=== PATIENT | female | born 2000 | race Caucasian/White ===

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

== ENCOUNTER 2022-12-27 10:13 | Inpatient (IN) ==
[2022-12-27] MEDS ORDERED: LIDOCAINE 1% LOCAL 20 ML VIAL INFIL PRN (11:59)
[2022-12-27] MEDS ORDERED: OXYTOCIN 30 UNITS/500 ML BAG IV PRN (11:59)
--- NOTE | 2022-12-27 12:06 | History & Physical Report ---
Date of Service December 27, 2022 Assessment & Plan (1) 41 weeks gestation of : Plan: Admit, routine labs, sublingual Cytotec 25 mcg every 4 hours Plan for artificial rupture of membranes and oxytocin for further augmentation when appropriate Epidural if patient request Anticipate spontaneous vaginal delivery (2) Antepartum anemia complicating in third trimester: Plan: Patient has reviewed received IV iron this , admission H&H pending (3) Hx of resection of large bowel: Plan: from OB standpoint should be reserved for routineOB indications and favorable outcomes have been reported in patients with Hx colectomy that pursued vaginal delivery. -Avoid episiotomy when able. -Increase hydration to 2-3 liters of water daily, spread over the course of the day. (4) Rh negative status during in third trimester: Plan: We will give RhoGAM if indicated (5) Prothrombin gene mutation: Plan: Plan for prophylactic Lovenox 6 to 8 weeks (6) Aortic regurgitation: Plan: Last echo ejection fraction normal, will make sure anesthesia is aware Admission and Anticipated Discharge Date Admission Date: December 27, 2022 History of Present Illness Chief Complaint: Post dates IOL Primary Care Provider: NO PCP Patient is a pleasant 22-year-old -0-1-0 at 41 and 0 days dated by 9-week ultrasound who presents to labor and delivery for induction of labor for postterm gestation. She denies contractions, leaking of fluid or vaginal bleeding. Notes good movement. Denies headache, blurry vision, right upper quadrant epigastric pain. Otherwise feeling well has been complicated by history of liver infarct, as a result of Int ra-Op complication. She was also found to be heterogeneous for prothrombin gene mutation with no history of VTE. Prophylactic dose of anticoagulation therapy recommended for 6 to 8 weeks . She also has a history of maternal aortic regurgitation, diagnosed in 2014, last echo 10/08/2022, ejection fraction 60 to 64%, and per [facility] okay to proceed with vaginal delivery no contraindication to Valsalva. She has a history of abdominal surgery due to history of microcolon and total colectomy, -"Laparoscopic diverting loop ileostomy done in October 2020 for her severe constipation, and on 09 Nov 2020, the loop ileostomy was taken down, and laparoscopic total abdominal colectomy with ileorectal anastomosis was done by Dr. Koenig at [facility]. The patient was then admitted to [facility] on 01/16/2021 with abdominal pain and was found to have some bowel obstruction at the anastomotic site. She was taken to the operating room for flexible sigmoidoscopy and dilatation of the ileorectal anastomosis. She was discharged on 01/18/2021. The patient had another flexible sigmoidoscopy done on 01/26/2021, and the ileorectal anastomosis was dilated again, and she was discharged on MiraLAX" from OB standpoint should be reserved for routineOB indications and favorable outcomes have bene reported in patients with Hx colectomy that pursued vaginal delivery. -Avoid episiotomy when able. -Increase hydration to 2-3 liters of water daily, spread over the course of the day. also complicated by antepartum anemia which she received iron t ransfusion. Rh- in which she received RhoGAM earlier this Allergies Allergy/AdvReac Type Severity Reaction Status Date / Time Sulfa (Sulfonamide AdvReac Intermediate JOINT PAIN Verified 12/27/22 10:51 Antibiotics) Home Medications Medication Instructions Recorded Confirmed Type pantoprazole 20 mg tablet,delayed 20 mg PO BID 04/20/18 12/27/22 History release tramadol 50 mg tablet 50 mg PO Q6 PRN Pain 10/08/20 12/27/22 History 1 tab PO DAILY 12/27/22 12/27/22 History Tums 1 tab PO DAILY PRN Heartburn 12/27/22 12/27/22 History Patient History Medical History Eosinophilic esophagitis GERD (gastroesophageal reflux disease) H/O constipation Ovarian cyst Prothrombin gene mutation Heparin while in the hospital with back pain in 2020. Surgical History H/O ileostomy Family History Sister Factor VII deficiency Grandmother (Paternal) Hypertension Diabetes Grandmother (Paternal) Hypertension Grandfather (Maternal) Hypertension Grandfather (Paternal) Hypertension Grandmother (Maternal) Stroke Grandfather (Maternal) No problems noted. Grandfather (Paternal) Diabetes Social History Smoking Status: Never smoker Second Hand Exposure: No; Do You Dip or Chew Tobacco: No; Hx Alcohol Use: No Hx Substance Use: No Preferred Language: Kinyarwanda Foil Wrapper Required: No Beliefs That Will Affect Care: None marital status: Single Current Living Situation Comment: Lives with Father of the baby. 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 record Review of Systems All systems reviewed & are unremarkable except as noted in HPI & below Physical Exam Constitutional: WD/WN, vitals as above Respiratory: normal respiratory effort, lungs clear to auscultation Cardiovascular: RRR, no murmur, no edema Gastrointestinal (Abdomen): normal bowel sounds, soft, nontender, no he patosplenomegaly Gravid uterus, cephalic by Aidan's, estimated weight 3500 Genitourinary: Cervical exam: 0/0/-3 Results & Data Vital Signs (Past 12 Hours) Vital Signs Temp Pulse Resp BP 12/27/22 11:06 36.8 C 76 16 117/63 Monitoring External Monitor heart tracing: Baseline 135, moderate variability, positive accelerations no decelerations Tocodynamometer Irritable
[2022-12-27 12:39] LABS: Hemoglobin 10.6 g/dl (12.0-16.0); Mean Corpuscular Hemoglobin 29.8 pg (25.0-34.0); Mean Corpuscular Hgb Conc 34.2 g/dL (32.0-36.0); Mean Corpuscular Volume 87.1 fL (80.0-100.0); Mean Platelet Volume 10.6 fL (9.4-12.4); Platelet Count 232 K/uL (130-400); RDW Coefficient of Variation 16.2 % (11.5-14.5); RDW Standard Deviation 51.8 fL (36.4-46.3); Red Blood Count 3.56 M/uL (4.20-5.40); White Blood Count 12.58 K/ul (4.8-10.8)
[2022-12-27] MEDS: LACTATED RINGER'S 1,000 ML IV PRN ×2 (12:50→13:52)
[2022-12-27] MEDS: miSOPROStoL 25 MCG TAB SL SCH ×2 (14:00→23:33)
--- NOTE | 2022-12-27 20:10 | Obstetrical Progress Note ---
Date of Service December 27, 2022 Assessment & Plan (1) 41 weeks gestation of : Plan: s/p one dose Cytotec 25 mcg, but has been tk too regularly to give a second dose at this time. When contractions spaced out we will plan to give a second dose of Cytotec 25 mcg sublingually Plan for artificial rupture of membranes and oxytocin for further augmentation when appropriate Epidural if patient request Anticipate spontaneous vaginal delivery (2) Antepartum anemia complicating in third trimester: Plan: Patient has reviewed received IV iron this , admission H&H 10.6/31% (3) Hx of resection of large bowel: Plan: from OB standpoint should be reserved for routineOB indications and favorable outcomes have been reported in patients with Hx colectomy that pursued vaginal delivery. -Avoid episiotomy when able. -Increase hydration to 2-3 liters of water daily, spread over the course of the day. (4) Rh negative status during in third trimester: Plan: We will give RhoGAM if indicated (5) Prothrombin gene mutation: Plan: Plan for prophylactic Lovenox 6 to 8 weeks Continue SCDs while in bed (6) Aortic regurgitation: Plan: Last echo ejection fraction normal, will make sure anesthesia is aware Admission and Anticipated Discharge Date Admission Date: December 27, 2022 Subjective Patient lying comfortably in bed at this time, SCDs in place Did have some mild cramping earlier, denies any pressure or pain Physical Exam Constitutional: WD/WN, vitals as above Respiratory: normal respiratory effort, lungs clear to auscultation Cardiovascular: RRR, no murmur, no edema Gastrointestinal (Abdomen): normal bowel sounds, soft, nontender, no hepatosplenomegaly Genitourinary: heart tracing: Baseline 140, minimal to moderate variability, no positive accelerations since being placed onto the monitor, no decelerations Tocometer: Contractions every 2 to 4 minutes Cervix: Fingertip/50/-3, anterior soft Results & Data Vital Signs (Past 12 Hours) Vital Signs Temp Pulse Resp BP 12/27/22 19:58 72 114/59 L 12/27/22 14:06 16 12/27/22 14:06 36.5 C 16 12/27/22 14:07 80 106/58 L 12/27/22 11:06 36.8 C 76 16 117/63
[2022-12-28] MEDS: miSOPROStoL 25 MCG TAB SL SCH (03:35)
--- NOTE | 2022-12-28 06:36 | Obstetrical Progress Note ---
Date of Service December 28, 2022 Assessment & Plan (1) 41 weeks gestation of : Plan: s/p 3 doses Cytotec 25 mcg Patient to shower, eat breakfast this morning Plan for artificial rupture of membranes and oxytocin for further augmentation when appropriate Epidural if patient request Anticipate spontaneous vaginal delivery (2) Antepartum anemia complicating in third trimester: Plan: Patient has reviewed received IV iron this , admission H&H 10.6/31% (3) Hx of resection of large bowel: Plan: from OB standpoint should be reserved for routineOB indications and favorable outcomes have been reported in patients with Hx colectomy that pursued vaginal delivery. -Avoid episiotomy when able. -Increase hydration to 2-3 liters of water daily, spread over the course of the day. (4) Rh negative status during in third trimester: Plan: We will give RhoGAM if indicated (5) Prothrombin gene mutation: Plan: Plan for prophylactic Lovenox 6 to 8 weeks Continue SCDs while in bed (6) Aortic regurgitation: Plan: Last echo ejection fraction normal, will make sure anesthesia is aware Admission and Anticipated Discharge Date Admission Date: December 27, 2022 Subjective Patient has been able to sleep overnight, no complaints. SCDs in place Physical Exam Genitourinary: Tracing: Baseline 1 45-1 50, moderate variability, positive accelerations, no decelerations, category 1 tracing Tocometer: Contractions every 2 to 6 minutes Cervix: Fingertip/50/-3 Results & Data Vital Signs (Past 12 Hours) Vital Signs Temp Pulse Resp BP O2 Del Method 12/27/22 19:50 Room Air 12/28/22 03:02 16 12/28/22 03:02 36.7 C 16 12/28/22 03:01 74 96/53 L 12/27/22 23:15 36.9 C 96 H 16 106/52 L 12/27/22 19:58 36.8 C 72 20 114/59 L
[2022-12-28] MEDS ORDERED: OXYTOCIN 30 UNITS/500 ML BAG IV PRN ×2 (10:28→16:38)
--- NOTE | 2022-12-28 10:28 | Obstetrical Progress Note ---
Date of Service December 28, 2022 Assessment & Plan (1) 41 weeks gestation of : Plan: Labor Induction Day #2 Pt received 3 doses Cytotec on day #1 VE; Ft/post FHR CAT1 Zavala bulb placed w/o difficulty 40cc saline in zavala starting low dose pit Admission and Anticipated Discharge Date Admission Date: December 27, 2022 Results & Data Vital Signs (Past 12 Hours) Vital Signs Temp Pulse Resp BP 12/28/22 09:49 36.4 C L 20 12/28/22 07:05 36.6 C 18 12/28/22 09:39 66 102/56 L 12/28/22 07:11 72 115/54 L 12/28/22 03:02 16 12/28/22 03:02 36.7 C 16 12/28/22 03:01 74 96/53 L 12/27/22 23:15 36.9 C 96 H 16 106/52 L
[2022-12-28] MEDS: LACTATED RINGER'S 1,000 ML IV PRN ×3 (11:18→20:01)
[2022-12-28] MEDS ORDERED: BUTORPHANOL TARTRATE 1 MG/ML VIAL IV PRN (13:37)
[2022-12-28] MEDS ORDERED: SODIUM CHLORIDE 0.9% PF INJ 10 ML VIAL ONE (19:27)
[2022-12-28] MEDS ORDERED: BUPIVACAINE 0.25% PF 30 ML VIAL ONE (19:27)
[2022-12-28] MEDS ORDERED: fentaNYL citrate PF 100 MCG/2 ML VIAL ONE (19:27)
[2022-12-28] MEDS ORDERED: LIDOCAINE 2%/EPINEPHRINE 1:200,000 20 ML PF ONE ×2 (19:27→21:49)
[2022-12-28] MEDS ORDERED: ePHEDrine sulfate 50 MG/ML AMP ONE (19:27)
[2022-12-28] MEDS ORDERED: fentaNYL 2MCG/ML ROPIVACAINE 1.25MG/ML 100 ML BAG EPI ONE (19:28)
--- NOTE | 2022-12-28 19:38 | Obstetrical Progress Note ---
Date of Service December 28, 2022 Assessment & Plan Admission and Anticipated Discharge Date Admission Date: December 27, 2022 Subjective Pt doing well Walsh out FHR CAT1 Ctx . mild and irregular Pit; 10MU VE ; pt tolerated exam poorly Earlier exam by nurse was4cm Plan: Epidural analgesia and consider AROM Results & Data Vital Signs (Past 12 Hours) Vital Signs Temp Pulse Resp BP Pulse Ox 12/28/22 09:49 36.4 C L 20 12/28/22 19:01 20 12/28/22 19:01 37.0 C 20 12/28/22 18:48 69 94/53 L 12/28/22 18:19 73 101/53 L 12/28/22 17:53 66 103/60 12/28/22 17:18 71 109/58 L 12/28/22 16:34 78 110/58 L 12/28/22 16:19 18 12/28/22 16:19 36.5 C 18 12/28/22 16:00 79 20 99 12/28/22 15:55 74 99 12/28/22 15:50 80 99 12/28/22 15:45 82 99 12/28/22 15:40 74 98 12/28/22 15:35 77 99 12/28/22 15:30 84 99 12/28/22 15:25 80 100 12/28/22 15:20 71 100 12/28/22 15:17 65 98/56 L 12/28/22 15:15 74 99 12/28/22 15:10 71 100 12/28/22 15:05 69 100 12/28/22 15:00 73 100 12/28/22 14:55 66 99 12/28/22 14:50 73 97 12/28/22 14:45 64 97 12/28/22 14:40 66 97 12/28/22 14:35 62 96 12/28/22 14:28 20 12/28/22 14:28 36.5 C 20 12/28/22 14:30 74 97 12/28/22 14:25 60 96 12/28/22 14:20 59 L 96 12/28/22 14:17 63 93/52 L 12/28/22 14:15 61 96 12/28/22 14:10 59 L 96 12/28/22 14:05 66 95 06/24/23 14:00 71 20 100 12/28/22 13:55 62 100 12/28/22 13:18 68 111/66 12/28/22 12:16 91 H 18 118/65 12/28/22 11:19 18 12/28/22 11:19 36.5 C 72 18 115/58 L 12/28/22 09:39 66 102/56 L
[2022-12-28] MEDS ORDERED: fentaNYL 2MCG/ML ROPIVACAINE 1.25MG/ML 100 ML BAG EPI PRN (19:58)
[2022-12-28] MEDS ORDERED: ONDANSETRON INJ 2 MG/ML 2 ML VIAL IV PRN ×2 (19:58→22:11)
[2022-12-28] MEDS ORDERED: BUPIVACAINE 0.25% PF 30 ML VIAL EPI STA (19:58)
[2022-12-28] MEDS ORDERED: LIDOCAINE 2%/EPINEPHRINE 1:200,000 20 ML PF EPI STA (19:58)
[2022-12-28] MEDS ORDERED: NALOXONE HCL 0.4 MG/1 ML VIAL/CARP IV PRN ×2 (19:58→22:11)
[2022-12-28] MEDS ORDERED: NALOXONE HCL 1 MG in SODIUM CHLORIDE 0.9% 1000ML 1,000 ML IV PRN ×2 (19:58→22:11)
[2022-12-28] MEDS ORDERED: diphenhydrAMINE 50 MG/ML VIAL IV PRN ×2 (19:58→22:11)
[2022-12-28] MEDS ORDERED: ePHEDrine sulfate 50 MG/ML AMP IV PRN ×2 (19:58→22:11)
[2022-12-28] MEDS ORDERED: SODIUM CHLORIDE 0.9% PF INJ 10 ML VIAL EPI STA (19:58)
[2022-12-28] MEDS ORDERED: ROPIVACAINE 0.5% PF 5 MG/ML 20 ML VIAL EPI PRN (19:58)
[2022-12-28] MEDS ORDERED: BUPIVACAINE 0.25% PF 30 ML VIAL EPI PRN (19:58)
[2022-12-28] MEDS ORDERED: fentaNYL citrate PF 100 MCG/2 ML VIAL EPI STA (19:58)
[2022-12-28] MEDS ORDERED: NALBUPHINE HCL INJ 10 MG/ML AMP IV PRN ×2 (19:58→22:11)
[2022-12-28] MEDS ORDERED: fentaNYL citrate PF 100 MCG/2 ML VIAL EPI PRN (19:58)
[2022-12-28] MEDS ORDERED: SODIUM CHLORIDE 0.9% PF INJ 10 ML VIAL EPI PRN (19:58)
[2022-12-28] MEDS ORDERED: LIDOCAINE 2% MPF LOCAL 5 ML VIAL EPI PRN (19:58)
--- NOTE | 2022-12-28 19:58 | Anesthesiology Consultation ---
Date of Service December 28, 2022 Assessment & Plan ASA ASA2 Proposed Anesthesia Anesthesia Type: Labor Epidural Risk / Benefits Reviewed With: PT / POA / Parent / Guardian, Accepts Plan and Informed Consent Obtained History Height/Weight Height: 5 ft 2 in Weight: 76.657 kg Allergies Allergy/AdvReac Type Severity Reaction Status Date / Time Sulfa (Sulfonamide AdvReac Intermediate JOINT PAIN Verified 12/27/22 10:51 Antibiotics) Medications Home Medications Medication Instructions Recorded Confirmed Last Taken pantoprazole 20 mg tablet,delayed 20 mg PO BID 04/20/18 12/27/22 Unknown release tramadol 50 mg tablet 50 mg PO Q6 PRN Pain 10/08/20 12/27/22 Unknown 1 tab PO DAILY 12/27/22 12/27/22 12/27/22 08:00 Tums 1 tab PO DAILY PRN Heartburn 12/27/22 12/27/22 12/27/22 09:00 Active Medications Generic Name Dose Route Start Last Admin Trade Name Freq PRN Reason Stop Dose Admin Butorphanol Tartrate 1 mg 12/28/22 13:37 12/28/22 13:56 Butorphanol Tartrate 1 Mg/Ml Vial IV 01/27/23 13:36 1 mg Q4 PRN Administration Pain Lactated Ringer's 1,000 mls @ 125 mls/hr 12/27/22 11:59 12/28/22 20:01 Lr IV 12/29/22 11:58 125 mls/hr .Q8H PRN Administration L&D Protocol Protocol Oxytocin 30 units in 500 mls @ 0 mls/hr 12/28/22 10:28 12/28/22 14:56 Pitocin IV 12/30/22 10:27 0 units/hr .Q0M PRN 0 mls/hr Labor Induction/Augmentation Titration Protocol 0 UNITS/HR Oxytocin 30 units in 500 mls @ 10 mls/hr 12/28/22 16:38 12/28/22 19:01 Pitocin IV 12/30/22 16:37 0.6 units/hr .Q24H PRN 10 mls/hr Labor Induction/Augmentation Titration Protocol 0.6 UNITS/HR Misoprostol 25 mcg 12/27/22 12:00 12/28/22 03:35 Misoprostol 25 Mcg Tab SL 01/26/23 11:59 25 mcg Q4H RAFY Administration Past Medical History Medical History Eosinophilic esophagitis GERD (gastroesophageal reflux disease) H/O constipation Ovarian cyst Prothrombin gene mutation Heparin while in the hospital with back pain in 2020. Exercise / Class Metabolic Activity II 4-5 Yardwork/Stairs/Walk up hill Past Family History Family History Sister Factor VII deficiency Grandmother (Paternal) Hypertension Diabetes Grandmother (Paternal) Hypertension Grandfather (Maternal) Hypertension Grandfather (Paternal) Hypertension Grandmother (Maternal) Stroke Grandfather (Maternal) No problems noted. Grandfather (Paternal) Diabetes Past Surgical History Surgical History H/O ileostomy Past Anesthesia History No Hx of Anesthesia Complications and No Family Hx of Anesthesia Complications History of PONV No Hx of PONV and No Hx of Motion Sickness Social History Smoking Status: Never smoker Do You Dip or Chew Tobacco: No Hx Alcohol Use: No Hx Substance Use: No substance use type: does not use Review of Systems denies fever/cough/ colds/ chest pain/ SOB/ LASHA denies LASHA Physical Exam Vital Signs Last Vital Signs Temp 37.0 C 12/28/22 19:01 Pulse 98 H 12/28/22 20:23 Resp 20 12/28/22 19:01 BP 112/62 12/28/22 20:23 Pulse Ox 100 12/28/22 20:20 O2 Del Method Room Air 12/28/22 19:15 ENMT Mouth: no TMJ abnormality and no dentition abnormality Thyromental Distance: > or= 3.5 Finger Breadths Mallampati Class: II Neck neck extension not limited Respiratory normal respiratory effort; no respiratory distress Auscultation: lungs clear to auscultation bilaterally Cardiovascular Rate/Rhythm: regular rate and regular rhythm Neurologic moves all extremities Psychiatric Orientation: alert and oriented x 3 Testing Laboratory Results 12/27/22 12:10 Blood Type O Negative 12/27/22 12:10 Antibody Screen Cancelled 12/27/22 12:10 Antibody Screen NEGATIVE 12/27/22 12:10
[2022-12-28] MEDS ORDERED: CITRIC ACID/SODIUM CITRATE 15 ML UDC ONE (21:12)
--- NOTE | 2022-12-28 21:20 | Obstetrical Progress Note ---
Date of Service December 28, 2022 Assessment & Plan (1) 41 weeks gestation of : Plan FHR CAT1 Pit; 10mu VE; 4/100/-1 Attempted to AROM with amnio hook FHR dropped to 60;s scalp was performed Pit turned off Oxygen Pt on left side and Turb SQ given FH returned to base line will proceed to OR for STAT c/sec Admission and Anticipated Discharge Date Admission Date: December 27, 2022 Results & Data Vital Signs (Past 12 Hours) Vital Signs Temp Pulse Resp BP Pulse Ox O2 Del Method 12/28/22 19:15 Room Air 12/28/22 09:49 36.4 C L 20 12/28/22 21:16 114/53 L 12/28/22 21:10 125 H 99 12/28/22 21:05 139 H 99 12/28/22 21:06 134 H 117/60 12/28/22 21:00 87 98 12/28/22 20:55 90 103/58 L 97 12/28/22 20:52 86 107/63 12/28/22 20:50 89 97 12/28/22 20:46 84 110/58 L 12/28/22 20:45 88 98 12/28/22 20:40 91 H 107/55 L 97 12/28/22 20:35 96 H 111/56 L 97 12/28/22 20:30 90 97 12/28/22 20:31 111 H 112/55 L 12/28/22 20:25 94 H 110/56 L 99 12/28/22 20:23 98 H 112/62 12/28/22 20:21 100 H 109/62 12/28/22 20:20 94 H 100 12/28/22 20:19 90 106/61 12/28/22 20:15 89 98 12/28/22 20:10 105 H 100 12/28/22 20:08 96 H 126/65 12/28/22 20:05 115 H 99 12/28/22 19:01 20 12/28/22 19:01 37.0 C 20 12/28/22 18:48 69 94/53 L 12/28/22 18:19 73 101/53 L 12/28/22 17:53 66 103/60 12/28/22 17:18 71 109/58 L 12/28/22 16:34 78 110/58 L 12/28/22 16:19 18 12/28/22 16:19 36.5 C 18 12/28/22 16:00 79 20 99 12/28/22 15:55 74 99 12/28/22 15:50 80 99 12/28/22 15:45 82 99 12/28/22 15:40 74 98 12/28/22 15:35 77 99 12/28/22 15:30 84 99 12/28/22 15:25 80 100 12/28/22 15:20 71 100 12/28/22 15:17 65 98/56 L 12/28/22 15:15 74 99 12/28/22 15:10 71 100 12/28/22 15:05 69 100 12/28/22 15:00 73 100 12/28/22 14:55 66 99 12/28/22 14:50 73 97 12/28/22 14:45 64 97 12/28/22 14:40 66 97 12/28/22 14:35 62 96 12/28/22 14:28 20 12/28/22 14:28 36.5 C 20 12/28/22 14:30 74 97 12/28/22 14:25 60 96 12/28/22 14:20 59 L 96 12/28/22 14:17 63 93/52 L 12/28/22 14:15 61 96 12/28/22 14:10 59 L 96 12/28/22 14:05 66 95 12/28/22 14:00 71 20 100 12/28/22 13:55 62 100 12/28/22 13:18 68 111/66 12/28/22 12:16 91 H 18 118/65 12/28/22 11:19 18 12/28/22 11:19 36.5 C 72 18 115/58 L 12/28/22 09:39 66 102/56 L
[2022-12-28] MEDS ORDERED: ceFAZolin 2000MG 2,000 MG/15 ML SYR IV SCH (21:30)
[2022-12-28] MEDS ORDERED: ePHEDrine sulfate 50 MG/ML SYR ONE (21:50)
[2022-12-28] MEDS ORDERED: OXYTOCIN 10 UNITS/ML VIAL ONE ×2 (21:50→22:02)
[2022-12-28] MEDS ORDERED: ONDANSETRON INJ 2 MG/ML 2 ML VIAL ONE (21:56)
[2022-12-28] MEDS ORDERED: METHYLERGONOVINE MALEATE 0.2 MG/ML AMP ONE (22:02)
[2022-12-28] MEDS ORDERED: miSOPROStoL 200 MCG TAB ONE (22:03)
[2022-12-28] MEDS ORDERED: MoRPHine SULFATE PF 1 MG/ML 10 ML AMP/VIAL ONE (22:05)
[2022-12-28] MEDS ORDERED: MoRPHine SULFATE PF 1 MG/ML 10 ML AMP/VIAL EPI ONE (22:11)
[2022-12-28] MEDS ORDERED: NALOXONE HCL 0.08 MG in SYRINGE 1.8 ML IV PRN (22:11)
[2022-12-28] MEDS ORDERED: LACTATED RINGER'S 500 ML IV PRN (22:11)
[2022-12-28] MEDS ORDERED: MoRPHine SULFATE 2 MG/ML CARP IV PRN (22:11)
[2022-12-28] MEDS ORDERED: KETOROLAC 30 MG/ML VIAL IV PRN (22:11)
[2022-12-28] MEDS ORDERED: DC INTRASPINAL MORPHINE SCH (22:15)
[2022-12-28] MEDS ORDERED: NO NARCOTICS OR SEDATIVES SCH (22:15)
[2022-12-28] MEDS ORDERED: SODIUM CHLORIDE 0.9% 1000ML 1,000 ML IV SCH (22:15)
[2022-12-28 22:21] LABS: Base Excess Cord Arterial Bld -1.4 mEq/L (-9-1.8); CO2 Cord Arterial Blood 56 mmHg (39.1-73.5); HCO3 Cord Arterial Blood 26 mmol/L (19.7-28.5); Oxygen Sat Cord Arterial Blood < 60.0 % (<60); PO2 Cord Arterial Blood 21 mmHg (4.1-31.7); pH Cord Arterial Blood 7.28 (7.1-7.38)
[2022-12-28 22:22] LABS: Cord Venous Blood HCO3 23 mmol/L (18.4-26.8); Cord Venous Blood PCO2 40 mmHg (30.4-57.2); Cord Venous Blood PO2 32 mmHg (14.1-43.3); Cord Venous Blood pH 7.37 (7.20-7.44); O2 Saturation Cord Venous Bld 68.3 % (<68)
[2022-12-28] MEDS ORDERED: OXYTOCIN 10 UNITS/ML 10ML VIAL IM ONE (22:29)
[2022-12-28] MEDS ORDERED: miSOPROStoL 200 MCG TAB PR ONE (22:29)
[2022-12-28] MEDS ORDERED: SENNA 8.6 MG TAB PO PRN (22:44)
[2022-12-28] MEDS ORDERED: DIPHTHERIA/TETANUS/PERTUSSIS Vaccine (Tdap, Age 7+yrs) 0.5mL SYR/VL IM ONE (22:44)
[2022-12-28] MEDS ORDERED: MAGNESIUM HYDROXIDE SUSP 30 ML UDC PO PRN (22:44)
[2022-12-28] MEDS ORDERED: BENZOCAINE 20% AER SPR 82.5 GM CAN EXT PRN (22:44)
[2022-12-28] MEDS ORDERED: HYDROCORTISONE ACETATE 25 MG SUPP PR PRN (22:44)
[2022-12-28] MEDS ORDERED: LACTATED RINGER'S 1,000 ML IV SCH (22:45)
--- NOTE | 2022-12-28 22:51 | Anesthesia Procedure Note ---
Date of Service December 28, 2022 Anesthesia Post Epidural Note Vital Signs Vital Signs: Temp Pulse Resp BP Pulse Ox O2 Del Method 37.0 C 84 20 103/55 L 100 Room Air 12/28/22 19:01 12/28/22 22:48 12/28/22 19:01 12/28/22 22:47 12/28/22 22:48 12/28/22 19:15 Notes Mental Status: alert / awake / arousable and participated in evaluation Nausea / Vomiting: adequately controlled Pain: adequately controlled Airway Patency, RR, SpO2: stable & adequate BP & HR: stable & adequate Hydration State: stable & adequate Neuraxial Anesthesia: was administered and sensory block is resolving Anesthetic Complications: no major complications apparent and Pt Satisfied with anesthetic care Epidural: Removed without complications and With tip intact
--- NOTE | 2022-12-28 23:05 | Anesthesiology Progress Note ---
Date of Service December 28, 2022 Anesthesia Post Procedure Vital Signs Vital Signs: Temp Pulse Resp BP Pulse Ox O2 Del Method 12/28/22 19:15 Room Air 12/28/22 09:49 36.4 C L 20 12/28/22 07:05 36.6 C 18 12/28/22 23:03 78 100 12/28/22 22:58 87 100 12/28/22 22:57 102 H 101/60 12/28/22 22:53 77 100 12/28/22 22:48 84 100 12/28/22 22:47 75 103/55 L 12/28/22 21:36 91 H 99 12/28/22 21:35 94 H 109/57 L 12/28/22 21:31 99 H 99 12/28/22 21:30 99 H 112/56 L 12/28/22 21:26 114 H 99 12/28/22 21:25 121 H 114/58 L 12/28/22 21:21 112 H 99 12/28/22 21:20 107 H 112/52 L 12/28/22 21:16 98 12/28/22 21:16 114 H 12/28/22 21:16 101 H 114/53 L 12/28/22 21:10 125 H 99 12/28/22 21:05 139 H 99 12/28/22 21:06 134 H 117/60 12/28/22 21:00 87 98 12/28/22 20:55 90 103/58 L 97 12/28/22 20:52 86 107/63 12/28/22 20:50 89 97 12/28/22 20:46 84 110/58 L 12/28/22 20:45 88 98 12/28/22 20:40 91 H 107/55 L 97 12/28/22 20:35 96 H 111/56 L 97 12/28/22 20:30 90 97 12/28/22 20:31 111 H 112/55 L 12/28/22 20:25 94 H 110/56 L 99 12/28/22 20:23 98 H 112/62 12/28/22 20:21 100 H 109/62 12/28/22 20:20 94 H 100 12/28/22 20:19 90 106/61 12/28/22 20:15 89 98 12/28/22 20:10 105 H 100 12/28/22 20:08 96 H 126/65 12/28/22 20:05 115 H 99 12/28/22 19:01 20 12/28/22 19:01 37.0 C 20 12/28/22 18:48 69 94/53 L 12/28/22 18:19 73 101/53 L 12/28/22 17:53 66 103/60 12/28/22 17:18 71 109/58 L 12/28/22 16:34 78 110/58 L 12/28/22 16:19 18 12/28/22 16:19 36.5 C 18 12/28/22 16:00 79 20 99 12/28/22 15:55 74 99 12/28/22 15:50 80 99 12/28/22 15:45 82 99 12/28/22 15:40 74 98 12/28/22 15:35 77 99 12/28/22 15:30 84 99 12/28/22 15:25 80 100 12/28/22 15:20 71 100 12/28/22 15:17 65 98/56 L 12/28/22 15:15 74 99 12/28/22 15:10 71 100 12/28/22 15:05 69 100 12/28/22 15:00 73 100 12/28/22 14:55 66 99 12/28/22 14:50 73 97 12/28/22 14:45 64 97 12/28/22 14:40 66 97 12/28/22 14:35 62 96 12/28/22 14:28 20 12/28/22 14:28 36.5 C 20 12/28/22 14:30 74 97 12/28/22 14:25 60 96 12/28/22 14:20 59 L 96 12/28/22 14:17 63 93/52 L 12/28/22 14:15 61 96 12/28/22 14:10 59 L 96 12/28/22 14:05 66 95 12/28/22 14:00 71 20 100 12/28/22 13:55 62 100 12/28/22 13:18 68 111/66 12/28/22 12:16 91 H 18 118/65 12/28/22 11:19 18 12/28/22 11:19 36.5 C 72 18 115/58 L 12/28/22 09:39 66 102/56 L 12/28/22 07:11 72 115/54 L 12/28/22 03:02 16 12/28/22 03:02 36.7 C 16 12/28/22 03:01 74 96/53 L 12/27/22 23:15 36.9 C 96 H 16 106/52 L Transfer of Care Handoff Completed per policy Notes Mental Status: alert / awake / arousable and participated in evaluation Patient Amnestic to Procedure: Yes Nausea / Vomiting: adequately controlled Pain: adequately controlled Airway Patency, RR, SpO2: stable & adequate BP & HR: stable & adequate Hydration State: stable & adequate Anesthetic Complications: no major complications apparent and Pt Satisfied with anesthetic care
[2022-12-28] MEDS: OXYTOCIN 20 UNITS in LACTATED RINGER'S 1,000 ML IV SCH (23:18)
--- NOTE | 2022-12-28 23:32 | Operative Report ---
PG Post Operative Report Pre & Post Diagnosis Operation Date: 12/28/22 21:15 <No data on this case meets the specified criteria> I identified the patient and participated in the time-out.: Yes Procedure Operation Date: 12/28/22 21:15 Actual Procedures p Primary section. Live male child at - Rashid Moise MD Surgeon Rashid Moise MD Erosion Control Coordinator Dr Salomon Estimated Blood Loss 500 Findings Consistent with Post-Op Diagnosis Meconium on AROM.Live male in cephalic presentation with nuchal cord as well as body uterus tubes and ovaries appear grossly normal rest of the abdominal pelvic exam was unremarkable Fluids 1000cc LR 50cc Clear urine at end of procedure Specimens cord gases and placenta Drains none Anesthesia Type Labor Epidural Complications none Indications featl bradycardia Non reassuring heat tracing Description of Procedure Patient brought to the operating room Prepped and draped in normal sterile fashion in dorsal supine position with a leftward tilt. Time out is performed. Patient is identified by name and date of . Allergy and antibiotics and reviewed and confirmed. Skin check is performed to see if anesthesia is adequate A Pfannenstiel incision is made and carried out to the fascia with a scalpel. Fascia is incised in the midline extended laterally on both sides with Underwood scissors. Ozzie's were used to grab the superior part of the fascial incision and the rectus abdominis muscle dissected with Underwood scissors.. Same procedure was performed on the lower section of the fascia. The rectus muscle is then in the midline and the peritoneum identified, tented up and entered sharply with the Metzenbaum scissors. The peritoneal incision was then extended superiorly and inferiorly with good visualization of the bladder. An Rj retractor was then inserted to provide better visualization and retraction. Vesicouterine peritoneum was identified, grasped with pickups and entered sharply with Metzenbaum scissors. The incision was then extended laterally and the bladder flap created with Metzenbaum scissors. The lower uterine segment incision was performed in a transverse fashion with a scalpel. Uterine incision was then extended laterally with the bandage scissors. Amniotomy is performed and meconium fluid id noted The 's head was delivered atraumatically. Nose and mouth suctioned with the bulb suction. Delayed cord clamping performed and cord is then clamped and cut and is handed over to the waiting pediatric team. Cord blood and gases obtained The placenta is then removed manually the uterus is exteriorized and cleared of all clots and debris. Uterine incision it repaired with 0-Vicryl in a locking fashion. A second layer of 0-Vicryl is used to obtain excellent hemostasis The bladder flap was repaired in a running fashion with plain suture. Copious amount of irrigation was used to irrigate the abdomen. Gutters were cleared of all clots and debris . Hemostasis was obtained. The Rj retractor is removed as well as sponges or instruments in the abdomen. The peritoneum was identified and closed in a running fashion using plain suture. The rectus abdominis muscle was examined to ensure there no bleeding. The rectus abdominis muscle was approximated loosely using plain suture in a [id number] manner. Once again hemostasis is confirmed. The fascia was grasped with [place]'s and closed in a running fashion. Both fascial layers are closed together using 0-Vicryl suture. Subcutaneous space is irrigated and hemostasis was confirmed. Subcutaneous space is approximated with plain suture. Skin is closed with pancho. The patient tolerated procedure well sponge just labs needle counts were correct x2 patient is sent to recovery in stable condition I attest to the content of the Intraoperative Record and any orders documented therein. Any exceptions are noted below.
[2022-12-29] MEDS ORDERED: TERBUTALINE SULFATE 1 MG/ML VIAL SQ ONE (01:24)
[2022-12-29] MEDS ORDERED: CITRIC ACID/SODIUM CITRATE 15 ML UDC PO SCH (06:00)
[2022-12-29 07:49] LABS: Hematocrit (blood only) 21.8 % (37.0-47.0); Hemoglobin 7.5 g/dl (12.0-16.0); Mean Corpuscular Hemoglobin 29.9 pg (25.0-34.0); Mean Corpuscular Hgb Conc 34.4 g/dL (32.0-36.0); Mean Corpuscular Volume 86.9 fL (80.0-100.0); Mean Platelet Volume 10.8 fL (9.4-12.4); Platelet Count 166 K/uL (130-400); RDW Standard Deviation 50.9 fL (36.4-46.3); Red Blood Count 2.51 M/uL (4.20-5.40); White Blood Count 19.78 K/ul (4.8-10.8)
[2022-12-29 07:52] LABS: Basophils # (auto) 0.05 K/uL (0-0.2); Basophils % (auto) 0.3 %; Eosinophils # (auto) 0.03 K/uL (0-0.50); Eosinophils % (auto) 0.2 %; Immature Granulocytes # (auto) 0.17 K/uL (0.01-0.20); Immature Granulocytes % (auto) 0.9 %; Lymphocytes # (auto) 2.54 K/uL (1.2-3.4); Lymphocytes % (auto) 12.8 %; Monocytes # (auto) 1.79 K/uL (0.11-0.59); Neutrophils % (auto) 76.8 %; RBC Morphology Unremarkable
[2022-12-29] MEDS: OXYTOCIN 20 UNITS in LACTATED RINGER'S 1,000 ML IV SCH (07:56)
--- NOTE | 2022-12-29 08:10 | Obstetrical Progress Note ---
Date of Service December 29, 2022 Assessment & Plan (1) delivery delivered: c/sec day#1 pt doing well No complaints continue day #1 care Results & Data Vital Signs (Past 12 Hours) Vital Signs Temp Pulse Pulse Resp BP BP Pulse Ox 12/29/22 06:00 18 97 12/29/22 05:00 16 97 12/29/22 03:00 18 98 12/29/22 02:00 16 98 12/29/22 03:40 37.1 C 79 16 97/59 L 97 12/29/22 01:00 14 100 12/29/22 01:00 37.1 C 85 14 104/67 100 12/29/22 00:45 36.8 C 18 12/29/22 00:15 16 12/28/22 23:45 16 12/28/22 23:45 18 12/28/22 23:25 16 12/28/22 23:05 18 12/28/22 23:35 16 12/28/22 23:15 18 12/28/22 22:55 18 12/28/22 22:45 36.5 C 16 12/29/22 00:52 76 111/60 12/29/22 00:48 99 H 100 12/29/22 00:43 72 100 12/29/22 00:38 87 100 12/29/22 00:33 86 100 12/29/22 00:28 86 100 12/29/22 00:26 80 112/63 12/29/22 00:23 82 100 12/29/22 00:18 100 12/29/22 00:18 101 H 12/29/22 00:18 87 80 L 12/29/22 00:13 80 100 12/29/22 00:08 86 100 12/29/22 00:03 92 H 98 12/28/22 23:58 88 100 12/28/22 23:55 92 H 102/61 12/28/22 23:53 86 100 12/28/22 23:48 90 100 12/28/22 23:47 83 84/51 L 12/28/22 23:45 83 91 12/28/22 23:43 82 100 12/28/22 23:38 73 100 12/28/22 23:37 69 101/57 L 12/28/22 23:33 66 100 12/28/22 23:28 88 100 12/28/22 23:27 103 H 100/57 L 12/28/22 23:23 86 100 12/28/22 23:18 101 H 100 12/28/22 23:17 93 H 102/59 L 91 12/28/22 23:13 110 H 100 12/28/22 23:08 86 100 12/28/22 23:07 86 97/52 L 91 12/28/22 23:03 78 100 12/28/22 22:58 87 100 12/28/22 22:57 102 H 101/60 12/28/22 22:53 77 100 12/28/22 22:48 84 100 12/28/22 22:47 75 103/55 L 12/28/22 21:36 91 H 99 12/28/22 21:35 94 H 109/57 L 12/28/22 21:31 99 H 99 12/28/22 21:30 99 H 112/56 L 12/28/22 21:26 114 H 99 12/28/22 21:25 121 H 114/58 L 12/28/22 21:21 112 H 99 12/28/22 21:20 107 H 112/52 L 12/28/22 21:16 98 12/28/22 21:16 114 H 12/28/22 21:16 101 H 114/53 L 12/28/22 21:10 125 H 99 12/28/22 21:05 139 H 99 12/28/22 21:06 134 H 117/60 12/28/22 21:00 87 98 12/28/22 20:55 90 103/58 L 97 12/28/22 20:52 86 107/63 12/28/22 20:50 89 97 12/28/22 20:46 84 110/58 L 12/28/22 20:45 88 98 12/28/22 20:40 91 H 107/55 L 97 12/28/22 20:35 96 H 111/56 L 97 12/28/22 20:30 90 97 12/28/22 20:31 111 H 112/55 L 12/28/22 20:25 94 H 110/56 L 99 12/28/22 20:23 98 H 112/62 12/28/22 20:21 100 H 109/62 12/28/22 20:20 94 H 100 12/28/22 20:19 90 106/61 12/28/22 20:15 89 98 12/28/22 20:10 105 H 100 12/28/22 20:08 96 H 126/65 12/28/22 20:05 115 H 99 O2 Del Method 12/29/22 06:00 12/29/22 05:00 12/29/22 03:00 12/29/22 02:00 12/29/22 03:40 Room Air 12/29/22 01:00 12/29/22 01:00 Room Air 12/29/22 00:45 12/29/22 00:15 12/28/22 23:45 12/28/22 23:45 12/28/22 23:25 12/28/22 23:05 12/28/22 23:35 12/28/22 23:15 12/28/22 22:55 12/28/22 22:45 12/29/22 00:52 12/29/22 00:48 12/29/22 00:43 12/29/22 00:38 12/29/22 00:33 12/29/22 00:28 12/29/22 00:26 12/29/22 00:23 12/29/22 00:18 12/29/22 00:18 12/29/22 00:18 12/29/22 00:13 12/29/22 00:08 12/29/22 00:03 12/28/22 23:58 12/28/22 23:55 12/28/22 23:53 12/28/22 23:48 12/28/22 23:47 12/28/22 23:45 12/28/22 23:43 12/28/22 23:38 12/28/22 23:37 12/28/22 23:33 12/28/22 23:28 12/28/22 23:27 12/28/22 23:23 12/28/22 23:18 12/28/22 23:17 12/28/22 23:13 12/28/22 23:08 12/28/22 23:07 12/28/22 23:03 12/28/22 22:58 12/28/22 22:57 12/28/22 22:53 12/28/22 22:48 12/28/22 22:47 12/28/22 21:36 12/28/22 21:35 12/28/22 21:31 12/28/22 21:30 12/28/22 21:26 12/28/22 21:25 12/28/22 21:21 12/28/22 21:20 12/28/22 21:16 12/28/22 21:16 12/28/22 21:16 12/28/22 21:10 12/28/22 21:05 12/28/22 21:06 12/28/22 21:00 12/28/22 20:55 12/28/22 20:52 12/28/22 20:50 12/28/22 20:46 12/28/22 20:45 12/28/22 20:40 12/28/22 20:35 12/28/22 20:30 12/28/22 20:31 12/28/22 20:25 12/28/22 20:23 12/28/22 20:21 12/28/22 20:20 12/28/22 20:19 12/28/22 20:15 12/28/22 20:10 12/28/22 20:08 12/28/22 20:05
[2022-12-29] MEDS: DOCUSATE SODIUM 100 MG CAP PO SCH ×2 (09:13→21:46)
[2022-12-29] MEDS: SIMETHICONE 80 MG CHEW PO SCH ×4 (09:13→21:46)
[2022-12-29] MEDS: PRENATAL VITAMIN 1 TAB PO SCH (09:13)
[2022-12-29] MEDS: FERROUS SULFATE 325 MG TAB PO SCH (09:13)
[2022-12-29] MEDS: ENOXAPARIN INJ 40 MG/0.4 ML SYR SQ SCH (09:19)
[2022-12-29] MEDS ORDERED: diphenhydrAMINE 50 MG/ML VIAL IV PRN (16:12)
[2022-12-29] MEDS ORDERED: diphenhydrAMINE Capsule 25 MG CAP PO PRN (16:12)
[2022-12-29] MEDS ORDERED: ONDANSETRON INJ 2 MG/ML 2 ML VIAL IV PRN (16:12)
[2022-12-29] MEDS ORDERED: PROMETHAZINE HCL 25 MG in SODIUM CHLORIDE 0.9% 50 ML IV PRN (16:12)
[2022-12-29] MEDS: IBUPROFEN 600 MG TAB PO PRN (17:27)
[2022-12-29] MEDS: oxyCODONE/ACETAMINOPHEN 5mg/325mg TAB PO PRN (17:27)
[2022-12-29] MEDS ORDERED: bisacodyL 5 MG TABEC PO SCH (20:00)
[2022-12-29] MEDS ORDERED: NALOXONE HCL 1 MG in SODIUM CHLORIDE 0.9% 1000ML 1,000 ML IV PRN (22:04)
[2022-12-30] MEDS: oxyCODONE/ACETAMINOPHEN 5mg/325mg TAB PO PRN ×3 (02:35→23:14)
[2022-12-30] MEDS: IBUPROFEN 600 MG TAB PO PRN (02:35)
[2022-12-30 07:17] LABS: Hematocrit (blood only) 21.4 % (37.0-47.0); Hemoglobin 7.3 g/dl (12.0-16.0)
[2022-12-30] MEDS: PRENATAL VITAMIN 1 TAB PO SCH (08:12)
[2022-12-30] MEDS: FERROUS SULFATE 325 MG TAB PO SCH (08:12)
[2022-12-30] MEDS: SIMETHICONE 80 MG CHEW PO SCH ×4 (08:12→21:38)
[2022-12-30] MEDS: ENOXAPARIN INJ 40 MG/0.4 ML SYR SQ SCH (08:12)
[2022-12-30] MEDS: DOCUSATE SODIUM 100 MG CAP PO SCH ×2 (08:12→21:38)
--- NOTE | 2022-12-30 09:54 | Obstetrical Progress Note ---
Date of Service December 30, 2022 Subjective Ambulation: ambulating normally Voiding: no voiding problems Passing Gas:: Yes Diet Tolerance:: regular diet Lochia:: Small Feeding Type:: breast feeding Current Pain Level(1-10): 0 doing well denies SOB or dizziness Physical Exam Constitutional WD/WN, vitals as above Musculoskeletal Extremities: extremities normal to inspection Skin no rashes, warm and dry Neurologic patellar DTR's 2+ bilat, sensation intact Psychiatric A+Ox3, euthymic affect Results & Data Vital Signs (Past 12 Hours) Vital Signs Temp Pulse Pulse Resp BP BP Pulse Ox 12/30/22 09:13 36.7 C 71 16 98/59 L 97 12/29/22 23:57 36.8 C 75 16 94/54 L O2 Del Method 12/30/22 09:13 12/29/22 23:57 Room Air Laboratory Results Laboratory Results - last 48 hr 12/28/22 12/28/22 12/29/22 21:58 21:58 06:44 WBC 19.78 H RBC 2.51 L Hgb 7.5 L D Hct 21.8 L MCV 86.9 MCH 29.9 MCHC 34.4 RDW Std Deviation 50.9 H RDW Coeff of Shellie 16.0 H Plt Count 166 MPV 10.8 Immature Gran % (Auto) 0.9 Neut % (Auto) 76.8 Lymph % (Auto) 12.8 [place] % (Auto) 9.0 Eos % (Auto) 0.2 Baso % (Auto) 0.3 Neut # (Auto) 15.20 H Lymph # (Auto) 2.54 [place] # (Auto) 1.79 H Eos # (Auto) 0.03 Baso # (Auto) 0.05 Immature Gran # (Auto) 0.17 RBC Morphology Unremarkable Cord ABG pH 7.28 Cord ABG pCO2 56 Cord ABG pO2 21 Cord ABG HCO3 26 Cord ABG Base Excess -1.4 Cord ABG O2 Sat < 60.0 Cord VBG pH 7.37 Cord VBG pCO2 40 Cord VBG pO2 32 Cord VBG HCO3 23 Cord VBG Base Excess -2.0 Cord VBG O2 Sat 68.3 H Blood Gas Comments A INFANT A Blood Type Antibody Screen Screen 12/30/22 12/30/22 07:03 07:03 WBC RBC Hgb 7.3 L Hct 21.4 L MCV MCH MCHC RDW Std Deviation RDW Coeff of Shellie Plt Count MPV Immature Gran % (Auto) Neut % (Auto) Lymph % (Auto) [place] % (Auto) Eos % (Auto) Baso % (Auto) Neut # (Auto) Lymph # (Auto) [place] # (Auto) Eos # (Auto) Baso # (Auto) Immature Gran # (Auto) RBC Morphology Cord ABG pH Cord ABG pCO2 Cord ABG pO2 Cord ABG HCO3 Cord ABG Base Excess Cord ABG O2 Sat Cord VBG pH Cord VBG pCO2 Cord VBG pO2 Cord VBG HCO3 Cord VBG Base Excess Cord VBG O2 Sat Blood Gas Comments Blood Type O Negative Antibody Screen Cancelled Screen Negative
[2022-12-30] MEDS ORDERED: bisacodyL 10 MG SUPP PR PRN (22:44)
--- NOTE | 2022-12-31 08:24 | Obstetrical Progress Note ---
Date of Service December 31, 2022 Assessment & Plan (1) delivery delivered: Pt doing well No SOB, fatigue or malaise Hgb is 7;3m but pt is asymptomatic Discussed blood transfusion Pt is on Lovenox for will d/c home this evening Results & Data Vital Signs (Past 12 Hours) Vital Signs Temp Pulse Resp BP Pulse Ox O2 Del Method 12/30/22 23:45 Room Air 12/30/22 23:45 36.6 C 68 16 108/66 97 Room Air 12/30/22 21:30 37.0 C 85 18 100/61
[2022-12-31] MEDS: SIMETHICONE 80 MG CHEW PO SCH ×2 (08:54→14:16)
[2022-12-31] MEDS: oxyCODONE/ACETAMINOPHEN 5mg/325mg TAB PO PRN ×2 (08:54→14:16)
[2022-12-31] MEDS: FERROUS SULFATE 325 MG TAB PO SCH (08:54)
[2022-12-31] MEDS: PRENATAL VITAMIN 1 TAB PO SCH (08:54)
[2022-12-31] MEDS: DOCUSATE SODIUM 100 MG CAP PO SCH (08:54)
[2022-12-31] MEDS: ENOXAPARIN INJ 40 MG/0.4 ML SYR SQ SCH (08:55)
--- NOTE | 2022-12-31 11:47 | Discharge Summary ---
Date of Service December 31, 2022 Admission HPI Per Admitting Provider Patient is a pleasant 22-year-old -0-1-0 at 41 and 0 days dated by 9-week ultrasound who presents to labor and delivery for induction of labor for postterm gestation. She denies contractions, leaking of fluid or vaginal bleeding. Notes good movement. Denies headache, blurry vision, right upper quadrant epigastric pain. Otherwise feeling well has been complicated by history of liver infarct, as a result of Intra-Op complication. She was also found to be heterogeneous for prothrombin gene mutation with no history of VTE. Prophylactic dose of anticoagulation therapy recommended for 6 to 8 weeks . She also has a history of maternal aortic regurgitation, diagnosed in 2014, last echo 10/08/2022, ejection fraction 60 to 64%, and per [facility] okay to proceed with vaginal delivery no co ntraindication to Valsalva. She has a history of abdominal surgery due to history of microcolon and total colectomy, -"Laparoscopic diverting loop ileostomy done in October 2020 for her severe constipation, and on 09 Nov 2020, the loop ileostomy was taken down, and laparoscopic total abdominal colectomy with ileorectal anastomosis was done by Dr. Koenig at [facility]. The patient was then admitted to [facility] on 01/16/2021 with abdominal pain and was found to have some bowel obstruction at the anastomotic site. She was taken to the operating room for flexible sigmoidoscopy and dilatation of the ileorectal anastomosis. She was discharged on 01/18/2021. The patient had another flexible sigmoidoscopy done on 01/26/2021, and the ileorectal anastomosis was dilated again, and she was discharged on MiraLAX" from OB standpoint should be reserved for routineOB indications and favorable outcomes have bene reported in patients with Hx colectomy that pursued vaginal delivery. -Avoid episiotomy when able. -Increase hydration to 2-3 liters of water daily, spread over the course of the day. also complicated by antepartum anemia which she received iron transfusion. Rh- in which she received RhoGAM earlier this Discharge Data Consultations 12/27/22 11:59 Consult Anesthesiology Stat Procedures Performed Operation Date: 12/28/22 21:15 Actual Procedures p Primary section. Live male child at - Rashid Moise MD Hospital Course (1) delivery delivered: Post op course was unremarkable and pt is discharges home in stable condition. Discharge instructions including medications,diet, activity and follow up appointments are reviewed with pt.
== END 2022-12-31 16:15 | disposition home or self-care (01) | DRG 787 ==
LOC: 4S1 10:13 → 4E2 12-29 01:17